=== PATIENT | female | born 1960 | race Caucasian/White ===

== ENCOUNTER → 2018-02-04 | Outpatient (CLI) | payer BC ==
[~2018-02-04] MED LIST: IBUP800 PO
[2018-02-04 17:45] LABS: BASOPHILS ABSOLUTE AUTO 0.02 K/mm3 (0.00-0.23); BASOPHILS PERCENT AUTO 0 % (0-2); EOSINOPHILS ABSOLUTE AUTO 0.12 K/mm3 (0.00-0.68); EOSINOPHILS PERCENT AUTO 2 % (0-6); Hemoglobin 13.3 g/dL (11.5-16.0); IMMATURE GRAN ABSOLUTE AUTO 0.01 K/mm3 (0.00-0.10); IMMATURE GRAN PERCENT AUTO 0 % (0-1); LYMPHOCYTES ABSOLUTE AUTO 1.77 K/mm3 (0.84-5.20); LYMPHOCYTES PERCENT AUTO 34 % (21-46); MONOCYTES ABSOLUTE AUTO 0.31 K/mm3 (0.16-1.47); MONOCYTES PERCENT AUTO 6 % (4-13); Mean Corpuscular HGB 31.3 pg (26.0-34.0); Mean Corpuscular HGB Conc 34.1 g/dL (31.5-36.5); Mean Corpuscular Volume 92 fL (80-100); Mean Platelet Volume 9.5 fL (9.1-12.4); NEUTROPHILS ABSOLUTE AUTO 2.91 K/mm3 (1.96-9.15); NEUTROPHILS PERCENT AUTO 57 % (41-73); Platelet Count 240 K/mm3 (150-400); RDW Coefficient Variation 11.6 % (11.7-14.2); RDW Standard Deviation 39.4 fL (35.1-46.3); Red Blood Cell Count 4.25 M/mm3 (3.80-5.20); White Blood Cell Count 5.14 K/mm3 (4.00-11.30)
[2018-02-04 18:00] LABS: Alanine Aminotransfer (ALT/SGP 25 U/L (12-78); Albumin, Blood 3.9 g/dL (3.4-5.0); Albumin/Globulin Ratio 1.1 (0.8-1.8); Alk Phos 76 U/L (50-136); Anion Gap 5 mmol/L (6-16); Aspartate Aminotrans (AST/SGOT 15 U/L (12-37); Bilirubin, Total 0.4 mg/dL (0.1-1.0); Blood Urea Nitrogen 12 mg/dL (8-24); CO2, Blood 29 mmol/L (21-32); Calcium, Blood 9.3 mg/dL (8.5-10.1); Chloride, Blood 103 mmol/L (98-108); Cholesterol 192 mg/dL (50-200); Free Thyroxine 0.85 ng/dL (0.70-1.60); Globulin, Blood 3.6 g/dL (2.2-4.0); Glucose, Blood 89 mg/dL (70-99); HDL Cholesterol 65 mg/dL (>39); LDL/HDL RATIO 1.7; Low Density Lipoprotein Chol 112 mg/dL (0-110); Potassium, Blood 4.2 mmol/L (3.5-5.5); Sodium, Blood 137 mmol/L (136-145); Total Protein, Blood 7.5 g/dL (6.4-8.2); Triglycerides 73 mg/dL (30-160); Very Low Density Lipoprot Chol 14 mg/dL (6-32)
[2018-02-04 18:07] LABS: Bun/Creatinine Ratio 18.4 (12.0-20.0); Creatinine, Blood 0.65 mg/dL (0.40-1.00); Glomerular Filtration Rate >60 (60-)
== END | disposition home or self-care (01) ==
LOC: LAB SHORT 17:29 → LAB 17:29
PROVIDERS: Nurse Practitioner Adult Health
DX: E03.9 Hypothyroidism, unspecified (principal); N95.1 Menopausal and female climacteric states; F32.9 Major depressive disorder, single episode, unspecified
CPT/HCPCS: 80053; 80061; 84439; 84443; 85025

== ENCOUNTER → 2018-09-09 | Outpatient (CLI) | payer BC ==
[2018-09-09 19:05] LABS: BASOPHILS ABSOLUTE AUTO 0.02 K/mm3 (0.00-0.23); BASOPHILS PERCENT AUTO 0 % (0-2); EOSINOPHILS ABSOLUTE AUTO 0.13 K/mm3 (0.00-0.68); EOSINOPHILS PERCENT AUTO 3 % (0-6); Hemoglobin 13.5 g/dL (11.5-16.0); IMMATURE GRAN ABSOLUTE AUTO 0.01 K/mm3 (0.00-0.10); IMMATURE GRAN PERCENT AUTO 0 % (0-1); LYMPHOCYTES ABSOLUTE AUTO 1.73 K/mm3 (0.84-5.20); LYMPHOCYTES PERCENT AUTO 34 % (21-46); MONOCYTES ABSOLUTE AUTO 0.41 K/mm3 (0.16-1.47); MONOCYTES PERCENT AUTO 8 % (4-13); Mean Corpuscular HGB 30.5 pg (26.0-34.0); Mean Corpuscular HGB Conc 33.8 g/dL (31.5-36.5); Mean Corpuscular Volume 91 fL (80-100); Mean Platelet Volume 9.6 fL (9.1-12.4); NEUTROPHILS ABSOLUTE AUTO 2.77 K/mm3 (1.96-9.15); NEUTROPHILS PERCENT AUTO 55 % (41-73); Platelet Count 256 K/mm3 (150-400); RDW Coefficient Variation 11.9 % (11.7-14.2); RDW Standard Deviation 39.3 fL (35.1-46.3); Red Blood Cell Count 4.42 M/mm3 (3.80-5.20); White Blood Cell Count 5.07 K/mm3 (4.00-11.30)
[2018-09-09 19:22] LABS: Alanine Aminotransfer (ALT/SGP 30 U/L (12-78); Albumin, Blood 3.9 g/dL (3.4-5.0); Albumin/Globulin Ratio 1.1 (0.8-1.8); Alk Phos 65 U/L (50-136); Anion Gap 6 mmol/L (6-16); Aspartate Aminotrans (AST/SGOT 19 U/L (12-37); Bilirubin, Total 0.3 mg/dL (0.1-1.0); Blood Urea Nitrogen 12 mg/dL (8-24); Bun/Creatinine Ratio 19.4 (12.0-20.0); CO2, Blood 27 mmol/L (21-32); Calcium, Blood 9.1 mg/dL (8.5-10.1); Chloride, Blood 105 mmol/L (98-108); Creatinine, Blood 0.62 mg/dL (0.40-1.00); Globulin, Blood 3.7 g/dL (2.2-4.0); Glomerular Filtration Rate >60 (60-); Glucose, Blood 90 mg/dL (70-99); Sodium, Blood 138 mmol/L (136-145); Total Protein, Blood 7.6 g/dL (6.4-8.2)
== END ==
LOC: LAB SHORT 18:56 → LAB 18:56
PROVIDERS: Nurse Practitioner Family
DX: E03.9 Hypothyroidism, unspecified (principal); G56.01 Carpal tunnel syndrome, right upper limb
CPT/HCPCS: 80053; 84439; 84443; 85025

== ENCOUNTER → 2018-12-25 | Outpatient (CLI) | payer BC ==
[2018-12-30 15:14] LABS: HPV 16 Negative (Negative); HPV 18 Negative (Negative); HPV OTHER HR TYPES Negative (Negative)
== END | disposition home or self-care (01) ==
LOC: LAB 19:47 → LAB SHORT 19:47 → EDSTATUS 12-26 11:45 → LAB FUT 12-26 11:45
PROVIDERS: Nurse Practitioner Family
DX: Z01.419 Encounter for gynecological examination (general) (routine) without abnormal findings (principal)
CPT/HCPCS: 87624; G0123

== ENCOUNTER 2019-04-17 12:05 | Emergency (ER) | payer BC ==
[~2019-04-17] VITALS: Ht 160 cm; Wt 65.8 kg
[2019-04-17] MEDS ORDERED: TRAZ50 (12:11)
[2019-04-17] MEDS ORDERED: LEVSOD50 (12:11)
[2019-04-17] MEDS ORDERED: ZIPSOR25 MG (12:13)
[2019-04-17 12:27] LABS: BASOPHILS ABSOLUTE AUTO 0.03 K/mm3 (0.00-0.23); BASOPHILS PERCENT AUTO 1 % (0-2); EOSINOPHILS ABSOLUTE AUTO 0.19 K/mm3 (0.00-0.68); EOSINOPHILS PERCENT AUTO 4 % (0-6); Hematocrit 37.2 % (33.0-51.0); Hemoglobin 12.7 g/dL (11.5-16.0); IMMATURE GRAN ABSOLUTE AUTO 0.04 K/mm3 (0.00-0.10); IMMATURE GRAN PERCENT AUTO 1 % (0-1); LYMPHOCYTES ABSOLUTE AUTO 2.08 K/mm3 (0.84-5.20); LYMPHOCYTES PERCENT AUTO 39 % (21-46); MONOCYTES ABSOLUTE AUTO 0.41 K/mm3 (0.16-1.47); MONOCYTES PERCENT AUTO 8 % (4-13); Mean Corpuscular HGB 31.4 pg (26.0-34.0); Mean Corpuscular HGB Conc 34.1 g/dL (31.5-36.5); Mean Corpuscular Volume 92 fL (80-100); Mean Platelet Volume 9.7 fL (9.1-12.4); NEUTROPHILS ABSOLUTE AUTO 2.58 K/mm3 (1.96-9.15); NEUTROPHILS PERCENT AUTO 48 % (41-73); Platelet Count 190 K/mm3 (150-400); RDW Coefficient Variation 12.1 % (11.7-14.2); RDW Standard Deviation 40.6 fL (35.1-46.3); Red Blood Cell Count 4.05 M/mm3 (3.80-5.20); White Blood Cell Count 5.33 K/mm3 (4.00-11.30)
[2019-04-17 12:27] LABS: Source, Urine Clean Catch
[2019-04-17 12:32] LABS: Appearance, Urine Clear (Clear); Bilirubin, Urine Neg (Neg); Blood, Urine Neg (Neg); Color, Urine Pale Yellow (P-Yellow); Glucose Qualitative, Urine Neg (Neg); Ketones, Urine Neg (Neg); Leukocyte Esterase, Urine Neg (Neg); Nitrite, Urine Neg (Neg); Protein, Urine Neg (Neg); Specific Gravity, Urine 1.005 (1.003-1.022); Urobilinogen, Urine NORM (Normal)
[2019-04-17 12:47] LABS: Alanine Aminotransfer (ALT/SGP 98 U/L (12-78); Albumin, Blood 3.4 g/dL (3.4-5.0); Alk Phos 88 U/L (50-136); Anion Gap 6 mmol/L (6-16); Aspartate Aminotrans (AST/SGOT 49 U/L (12-37); Bilirubin, Total 0.4 mg/dL (0.1-1.0); Blood Urea Nitrogen 11 mg/dL (8-24); Bun/Creatinine Ratio 18.4 (12.0-20.0); CO2, Blood 26 mmol/L (21-32); Calcium, Blood 8.8 mg/dL (8.5-10.1); Chloride, Blood 107 mmol/L (98-108); Globulin, Blood 3.4 g/dL (2.2-4.0); Glomerular Filtration Rate >60 (60-); Glucose, Blood 115 mg/dL (70-99); Potassium, Blood 3.7 mmol/L (3.5-5.5); Sodium, Blood 139 mmol/L (136-145); Total Protein, Blood 6.8 g/dL (6.4-8.2)
[2019-04-17] MEDS ORDERED: Roxicodone5 MG PO (16:11)
== END 2019-04-17 16:27 | disposition home or self-care (01) ==
LOC: ER 12:05
PROVIDERS: Emergency Medicine
DX: N83.202 Unspecified ovarian cyst, left side (principal); E03.9 Hypothyroidism, unspecified
CPT/HCPCS: 74176; 76830; 76856; 80053; 81003; 83690; 85025; 93005; 93010; 96374; 96375; 99284-25; J1170; J1885; J2405

== ENCOUNTER → 2020-12-20 | Outpatient (CLI) | payer BC ==
[~2020-12-20] MED LIST changes: +LEVSOD50; +Roxicodone5 MG PO; +TRAZ50; +ZIPSOR25 MG
[2020-12-21 14:10] LABS: HPV 16 Negative (Negative); HPV 18 Negative (Negative); HPV OTHER HR TYPES Negative (Negative)
== END ==
LOC: LAB SHORT 14:00 → LAB 14:00
PROVIDERS: Nurse Practitioner Family
DX: Z01.419 Encounter for gynecological examination (general) (routine) without abnormal findings (principal)
CPT/HCPCS: 87624; G0123

== ENCOUNTER 2021-02-15 07:46 | Day surgery (SDC) | payer BC ==
[~2021-02-15] VITALS: Ht 160 cm; Wt 68.9 kg
[2021-02-15] MEDS ORDERED: GABA100 PO (08:28)
[2021-02-15] MEDS ORDERED: FAMO20 (08:28)
--- NOTE | 2021-02-15 09:29 | NUR ---
02/15/21 0929 Libby Madrigal LATE ENTRY: PT ARRIVES TO SCU WITH HYPOTENSION 92/50 AND DROWSY. LEFT IV IN AND OPENED UP FLUIDS. 0929 BP 100/59. PT RESTING AND DRINKING FLUIDS.
== END 2021-02-15 09:48 | disposition home or self-care (01) ==
LOC: ORSCSDS 07:46
PROVIDERS: Orthopaedic Surgery
PROC: 01N50ZZ Release Median Nerve, Open Approach (ICD-10-PCS; principal; 2021-02-15 09:00)
DX: G56.01 Carpal tunnel syndrome, right upper limb (principal); E03.9 Hypothyroidism, unspecified; F41.8 Other specified anxiety disorders; Z79.899 Other long term (current) drug therapy
CPT/HCPCS: J0690; J2250; J2704; J3010; J7120

== ENCOUNTER 2021-04-05 06:49 | Day surgery (SDC) | payer BC ==
[~2021-04-05] VITALS: Ht 160 cm; Wt 68.2 kg
[~2021-04-05 06:49] MED LIST changes: +FAMO20; +GABA100 PO
--- NOTE | 2021-04-05 07:31 | NUR ---
04/05/21 0731 Erickson Alcala CALL LIGHT WITHIN REACH
[2021-04-05] MEDS ORDERED: MELO7.5 PO (07:32)
== END 2021-04-05 09:10 | disposition home or self-care (01) ==
LOC: ORSCSDS 06:49
PROVIDERS: Orthopaedic Surgery
PROC: 01N50ZZ Release Median Nerve, Open Approach (ICD-10-PCS; principal; 2021-04-05 08:00)
DX: G56.02 Carpal tunnel syndrome, left upper limb (principal); K21.9 Gastro-esophageal reflux disease without esophagitis; N18.9 Chronic kidney disease, unspecified; F41.8 Other specified anxiety disorders; Z79.899 Other long term (current) drug therapy
CPT/HCPCS: J2250; J3010; J7120

== ENCOUNTER 2021-05-03 14:01 | Day surgery (SDC) | payer BC ==
[~2021-05-03] VITALS: Ht 160 cm; Wt 66.5 kg
[~2021-05-03 14:01] MED LIST changes: +MELO7.5 PO
--- NOTE | 2021-05-03 14:40 | NUR ---
05/03/21 1440 Lidya Crandall FIRST ATTEMPT MISSED BY THE MA IN THE RIGHT FOREARM. SECOND ATTEMPT SUCCESFUL IN THE RIGHT HAND.
== END 2021-05-03 15:57 | disposition home or self-care (01) ==
LOC: ORSCSDS 14:01
PROVIDERS: Surgery
PROC: 0DJD8ZZ Inspection of Lower Intestinal Tract, Via Natural or Artificial Opening Endoscopic (ICD-10-PCS; principal; 2021-05-03 15:15)
DX: Z12.11 Encounter for screening for malignant neoplasm of colon (principal); E03.9 Hypothyroidism, unspecified; Z79.899 Other long term (current) drug therapy
CPT/HCPCS: J0461; J2405; J2704; J7120

== ENCOUNTER → 2022-05-17 | Outpatient (CLI) | payer BC ==
[2022-05-17 20:17] LABS: CHOL/HDL RATIO 2.9; Cholesterol 194 mg/dL (50-200); HDL Cholesterol 68 mg/dL (>39); LDL/HDL RATIO 1.7; Low Density Lipoprotein Chol 115 mg/dL (0-110); Triglycerides 56 mg/dL (30-160); Very Low Density Lipoprot Chol 11 mg/dL (6-32)
== END | disposition home or self-care (01) ==
LOC: LAB SHORT 08:11
PROVIDERS: Nurse Practitioner Family
DX: E78.5 Hyperlipidemia, unspecified (principal); E03.9 Hypothyroidism, unspecified
CPT/HCPCS: 80061; 84443

== ENCOUNTER → 2022-08-07 | Outpatient (CLI) | payer BC ==
[2022-08-07 23:24] LABS: BASOPHILS ABSOLUTE AUTO 0.03 K/mm3 (0.00-0.23); BASOPHILS PERCENT AUTO 1 % (0-2); EOSINOPHILS ABSOLUTE AUTO 0.12 K/mm3 (0.00-0.68); EOSINOPHILS PERCENT AUTO 3 % (0-6); Hematocrit 35.6 % (33.0-51.0); Hemoglobin 12.3 g/dL (11.5-16.0); IMMATURE GRAN ABSOLUTE AUTO 0.01 K/mm3 (0.00-0.10); IMMATURE GRAN PERCENT AUTO 0 % (0-1); LYMPHOCYTES ABSOLUTE AUTO 1.55 K/mm3 (0.84-5.20); LYMPHOCYTES PERCENT AUTO 36 % (21-46); MONOCYTES ABSOLUTE AUTO 0.27 K/mm3 (0.16-1.47); MONOCYTES PERCENT AUTO 6 % (4-13); Mean Corpuscular HGB 31.5 pg (26.0-34.0); Mean Corpuscular HGB Conc 34.6 g/dL (31.5-36.5); Mean Corpuscular Volume 91 fL (80-100); Mean Platelet Volume 10.6 fL (9.1-12.4); NEUTROPHILS ABSOLUTE AUTO 2.32 K/mm3 (1.96-9.15); NEUTROPHILS PERCENT AUTO 54 % (41-73); Platelet Count 201 K/mm3 (150-400); RDW Coefficient Variation 11.9 % (11.7-14.2); RDW Standard Deviation 39.4 fL (35.1-46.3); Red Blood Cell Count 3.91 M/mm3 (3.80-5.20)
[2022-08-08 08:22] LABS: Thyroid Stimulating Hormone 7.7 uIU/mL (0.360-4.800)
[2022-08-08 08:23] LABS: Albumin, Blood 3.7 g/dL (3.4-5.0); Albumin/Globulin Ratio 1.2 (0.8-1.8); Bilirubin, Total 0.5 mg/dL (0.1-1.0); Bun/Creatinine Ratio 8.8 (12.0-20.0); Calcium, Blood 9.1 mg/dL (8.5-10.1); Creatinine, Blood 0.69 mg/dL (0.40-1.00); Globulin, Blood 3.2 g/dL (2.2-4.0); Total Protein, Blood 6.9 g/dL (6.4-8.2)
== END | disposition home or self-care (01) ==
LOC: LAB SHORT 16:29
PROVIDERS: Nurse Practitioner Family
DX: R42 Dizziness and giddiness (principal)
CPT/HCPCS: 80053; 84443; 85025

== ENCOUNTER → 2022-08-21 | Outpatient (CLI) | payer OTHER ==
[2022-08-21 20:18] LABS: Free Thyroxine 0.87 ng/dL (0.70-1.60)
[2022-08-21 20:22] LABS: Triiodothyronine, Free 2.75 pg/mL (2.18-3.98)
== END | disposition home or self-care (01) ==
LOC: LAB 16:54 → LAB SHORT 16:54
PROVIDERS: Family Medicine
DX: R89.1 Abnormal level of hormones in specimens from other organs, systems and tissues (principal); R42 Dizziness and giddiness
CPT/HCPCS: 84439; 84481

== ENCOUNTER → 2022-09-20 | Outpatient (CLI) | payer OTHER ==
[2022-09-20 19:08] LABS: Free Thyroxine 0.9 ng/dL (0.70-1.60); Thyroid Stimulating Hormone 9.6 uIU/mL (0.360-4.800)
== END | disposition home or self-care (01) ==
LOC: LAB SHORT 12:00 → LAB 12:00
PROVIDERS: Nurse Practitioner Family
DX: R94.6 Abnormal results of thyroid function studies (principal)
CPT/HCPCS: 84439; 84443; 86376

== ENCOUNTER → 2022-12-20 | Outpatient (CLI) | payer OTHER | LOC: LAB 08:09 → LAB SHORT 08:09 | DX: E03.9 Hypothyroidism, unspecified (principal) | CPT/HCPCS: 84443 ==

== ENCOUNTER → 2023-06-12 | Outpatient (CLI) | payer OTHER | LOC: LAB 16:43 → LAB SHORT 16:43 | DX: E03.9 Hypothyroidism, unspecified (principal) | CPT/HCPCS: 84443 ==